=== PATIENT | male | born 1965 | race African-American/Black ===

== ENCOUNTER 2017-05-23 11:46 | Emergency (ER) | payer SELFPAY ==
[2017-05-23 12:01] VITALS: BP 160/99; PULSE 78; TEMP 98; BMI 36.9
--- NOTE | 2017-05-23 12:48 | PDOC ---
History of Present Illness - General Chief Complaint: Injury Stated Complaint: RT KNEE INJURY Time Seen by Provider: 05/23/17 12:14 History Source: Patient Exam Limitations: No Limitations - History of Present Illness Initial Comments: 05/23/17 12:42 51-year-old male presents to the emergency room with complaints of right knee pain. Patient states was walking after coming out of [place] when his right leg twisted inward causing him pain without striking the ground. Patient states since incident has been unable to completely bear weight and ambulate without assistance. Patient denies previous injury to the affected area denies any radiation of pain or sensory changes distal of injury. Patient took nothing for pain and has been ambulating with a cane since. Occurred: reports: this evening Severity: reports: mild Pain Location: reports: lower extremity Method of Injury: Yes: fall Modifying Factors: improves with: None Associated Symptoms (Fall): trouble walking Past History - Past Medical History Allergies/Adverse Reactions: Allergies Allergy/AdvReac Type Severity Reaction Status Date / Time No Known Allergies Allergy Verified 05/23/17 12:01 COPD: No GI Disorders: Yes (diverticulitis) HTN: Yes Other medical history: tendinitis both ankles - Suicide/Smoking/Psychosocial Hx Smoking History: Current every day smoker Number of Cigarettes Smoked Daily: 10 Information on smoking cessation initiated: No Patient Lives Alone: No Lives with/in: spouse/SO Review of Systems - Review of Systems Able to Perform ROS?: Yes Constitutional: No: Symptoms Reported Musculoskeletal: Yes: Joint Pain (right knee) Integumentary: No: Symptoms Reported Neurological: No: Symptoms reported *Physical Exam - Vital Signs Last Vital Signs Temp Pulse Resp BP Pulse Ox 98 F 78 18 160/99 97 05/23/17 11:57 05/23/17 11:57 05/23/17 11:57 05/23/17 11:57 05/23/17 11:57 - Physical Exam General Appearance: Yes: Nourished, Appropriately Dressed. No: Apparent Distress Extremity: positive: Normal Capillary Refill, Normal Inspection, Normal Range of Motion, Tender (of right meniscus. - silvia test. ) ED Treatment Course - RADIOLOGY Radiology Studies Ordered: Category Date Time Status KNEE 3 POS-RIGHT [RAD] Stat Radiology 05/23/17 12:26 Ordered Medical Decision Making - Medical Decision Making 05/23/17 12:49 Patient here with right knee injury. Patient examined and had tenderness over the right meniscus. Patient ordered for knee x-ray to rule out dislocation fracture. 05/23/17 13:11 X-ray shows no signs of fracture or dislocation. A small amount of fluid indicative of an effusion to the medial aspect. Patient ordered for knee immobilizer and crutches. Patient also given a referral to orthopedist, Dr. Wild. *DC/Admit/Observation/Transfer Diagnosis at time of Disposition: Knee pain, right - Discharge Dispostion Disposition: HOME Condition at time of disposition: Good - Referrals Referrals: Lucho Wild MD [Staff Physician] - - Patient Instructions Printed Discharge Instructions: DI for Knee Effusion Additional Instructions: Please use knee immobilizer during the day and remove at night. Please use crutches as needed. Please take Motrin and apply ice to the affected area for the next 3 days elevating the extremity when not ambulating. Please follow up with referred orthopedist if symptoms do not improve over the next 5 days. - Post Discharge Activity
[2017-05-23] MEDS ORDERED: IBUPROFEN 600 MG TABLET (FP) PO ONE ×2 (13:22→13:27)
== END 2017-05-23 13:31 | disposition home or self-care (01) ==
LOC: JERFT 11:46
PROC: 2W3QXYZ Immobilization of Right Lower Leg using Other Device (ICD-10-PCS; principal; 2017-05-23)
DX: S89.81XA Other specified injuries of right lower leg, initial encounter (principal); M25.461 Effusion, right knee; X50.1XXA Overexertion from prolonged static or awkward postures, initial encounter; Y93.89 Activity, other specified; Y92.22 Religious institution as the place of occurrence of the external cause; Y99.8 Other external cause status
CPT/HCPCS: 73560-TC-RT; 99282-25

== ENCOUNTER 2018-06-08 04:13 | Emergency (ER) | payer OTHER ==
[2018-06-08 05:57] VITALS: BP 170/95; PULSE 62; TEMP 98.5; BMI 34.8
[2018-06-08] MEDS ORDERED: ACETAMINOPHEN 325 MG TABLET (FP) PO ONE (06:05)
--- NOTE | 2018-06-08 06:05 | PDOC ---
History of Present Illness - General Chief Complaint: Ear Problem Stated Complaint: RIGHT EAR PAIN Time Seen by Provider: 06/08/18 05:34 History Source: Patient Exam Limitations: No Limitations - History of Present Illness Initial Comments: 06/08/18 05:58 HISTORY OF PRESENT ILLNESS: This is a 52-year-old male denies medical history presents to the emergency department for evaluation of right ear pain which started last night. Patient stated he felt a "popping sensation" in his right ear while watching TV last night. He describes a feeling as unable to equalize the pressure "like on an airplane." Patient reports muffled hearing in his right ear. If the patient began to experience the sensation cleaning his ears didn't notice any blood or discharge from the ear. Denies any headaches, dizziness. No recent travel or sick contacts. PAST MEDICAL HISTORY: Denies past medical history SURGICAL HISTORY: Denies ALLERGIES: No known drug allergies REVIEW OF SYSTEMS General/Constitutional: Denies fever or chills. Denies weakness, weight change. HEENT: Denies change in vision. Right ear pain. No discharge. Denies sore throat. Cardiovascular: Denies chest pain or shortness of breath. Respiratory: Denies cough, wheezing, or hemoptysis. Gastrointestinal: Denies nausea, vomiting, diarrhea or constipation. Denies rectal bleeding. Genitourinary: Denies dysuria, frequency, or change in urination. Musculoskeletal: Denies joint or muscle swelling or pain. Denies neck or back pain. Skin and breasts: Denies rash or easy bruising. Neurologic: Denies headache, vertigo, loss of consciousness, or loss of sensation. Psychiatric: Denies depression or anxiety. Endocrine: Denies increased thirst. Denies abnormal weight change. Hematologic/Lymphatic: Denies anemia, easy bleeding, or history of blood clots. Allergic/Immunologic: Denies hives or skin allergy. Denies latex allergy. PHYSICAL EXAM General Appearance: Well-appearing, appropriately dressed. No apparent distress , no intoxication. HEENT: EOMI, PERRLA, normal ENT inspection, normal voice, pharynx normal. No conjunctival pallor. No photophobia, scleral icterus. Right TM is bulging with marked erythema present. Effusion noted behind TM. Left TM is within normal limits. No tragal tenderness. No tenderness to palpation of the mastoids bilaterally Neck: Supple. Trachea midline. No tenderness, rigidity, carotid bruit, stridor , lymphadenopathy, or thyromegaly. Respiratory/Chest: Lungs CTAB. No shortness of breath, chest tenderness, respiratory distress, accessory muscle use. No crackles, rales, rhonchi, stridor , wheezing, dullness Cardiovascular: RRR. S1, S2. No JVD, murmur, bradycardia, tachycardia. 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 Fully oriented, alert. Appropriate mood/affect. Motor strength 5/5. No appreciable EOM palsy, facial droop or sensory deficit. Past History - Past Medical History Allergies/Adverse Reactions: Allergies Allergy/AdvReac Type Severity Reaction Status Date / Time No Known Allergies Allergy Verified 06/08/18 05:57 Home Medications: Ambulatory Orders Amox-Tr/K Cl [Augmentin - 875Mg Tablet] 1 tab PO BID #20 tablet 06/08/18 COPD: No GI Disorders: Yes (diverticulitis) HTN: Yes - Suicide/Smoking/Psychosocial Hx Smoking History: Never smoked Have you smoked in the past 12 months: No Number of Cigarettes Smoked Daily: 10 Information on smoking cessation initiated: No Hx Alcohol Use: No Drug/Substance Use Hx: No *Physical Exam - Vital Signs Last Vital Signs Temp Pulse Resp BP Pulse Ox 98.5 F 62 18 170/95 98 06/08/18 04:13 06/08/18 04:13 06/08/18 04:13 06/08/18 04:13 06/08/18 04:13 Moderate Sedation - Procedure Monitoring Vital Signs: Procedure Monitoring Vital Signs Temperature 98.5 F 06/08/18 04:13 Pulse Rate 62 06/08/18 04:13 Respiratory Rate 18 06/08/18 04:13 Blood Pressure 170/95 06/08/18 04:13 O2 Sat by Pulse Oximetry (%) 98 06/08/18 04:13 Medical Decision Making - Medical Decision Making 06/08/18 06:01 A/P: 52-year-old male with right otitis media No tragal tenderness No tenderness to mastoid processes bilaterally Augmentin 875 twice a day for 10 days as outpatient Discharge home *DC/Admit/Observation/Transfer Diagnosis at time of Disposition: Otitis media Qualifiers: Otitis media type: suppurative Chronicity: acute Laterality: right Recurrence: not specified as recurrent Spontaneous tympanic membrane rupture: without spontaneous rupture Qualified Code(s): H66.001 - Acute suppurative otitis media without spontaneous rupture of ear drum, right ear - Discharge Dispostion Disposition: HOME Condition at time of disposition: Fair Decision to Admit order: No - Prescriptions Prescriptions: Amox-Tr/K Cl [Augmentin - 875Mg Tablet] 1 tab PO BID #20 tablet - Referrals - Patient Instructions - Post Discharge Activity
[2018-06-08] MEDS ORDERED: ACETAMINOPHEN 325 MG TABLET (FP) ONE (06:08)
== END 2018-06-08 06:29 | disposition home or self-care (01) ==
LOC: JER 04:13
DX: H66.001 Acute suppurative otitis media without spontaneous rupture of ear drum, right ear (principal)
CPT/HCPCS: 99281-25

== ENCOUNTER 2020-07-31 21:40 | Emergency (ER) | payer OTHER ==
[2020-07-31 21:46] VITALS: BMI 32.5
[2020-07-31] MEDS ORDERED: KETOROLAC TROMETHAMINE 60 MG/2 ML VIAL IM ONE (23:18)
[2020-08-01] MEDS ORDERED: KETOROLAC TROMETHAMINE 60 MG/2 ML VIAL ONE (00:18)
[2020-08-01 01:50] VITALS: BP 155/104; PULSE 73; TEMP 98.3
== END 2020-08-01 02:00 | disposition home or self-care (01) ==
LOC: JER 21:40
PROC: 3E0233Z Introduction of Anti-inflammatory into Muscle, Percutaneous Approach (ICD-10-PCS; principal; 2020-07-31)
DX: M25.511 Pain in right shoulder (principal)
CPT/HCPCS: 72125-TC; 73030-TC-RT-FY; 99284-25